=== PATIENT | male | born 1945 | race Caucasian/White ===

== ENCOUNTER 2024-01-23 07:46 | Day surgery (SDC) | payer OTHER ==
[2024-01-19 12:49] VITALS: BMI 29.2
[2024-01-23] MEDS ORDERED: PHENYLEPHRINE 2.5% OPTHALMIC DROP 2ML BOTTLE ONE (07:59)
[2024-01-23] MEDS ORDERED: TROPICAMIDE 1% OPHTH SOLN 15 ML BOTTLE ONE (07:59)
[2024-01-23] MEDS: OFLOXACIN 0.3% OPHTHALMIC SOLUTION 5 ML BOTTLE OD SCH (08:10)
[2024-01-23] MEDS: KETOROLAC TROMETHAMINE 0.5% EYE DROP 1 DROP DROPS OD SCH (08:10)
[2024-01-23] MEDS: CYCLOPENTOLATE HCL 1% OPHTH SOLN 2 ML BOTTLE OD SCH (08:10)
[2024-01-23] MEDS: TROPICAMIDE 1% OPHTH SOLN 15 ML BOTTLE OD SCH (08:10)
[2024-01-23] MEDS: PHENYLEPHRINE 2.5% OPHTH SOLN 15 ML BOTTLE OD SCH (08:10)
[2024-01-23] MEDS ORDERED: BETAXOLOL HCL 0.25% OPHTHALMIC 10 ML DROPSBTL ONE (08:22)
[2024-01-23] MEDS ORDERED: BACITRACIN/POLYMYXIN OPH OINT 3.5 GM TUBE ONE (08:22)
[2024-01-23] MEDS ORDERED: TETRACAINE 0.5% OPHTH SOLN 2 ML BOTTLE ONE (08:23)
[2024-01-23] MEDS ORDERED: BSS (NA/CA/MG/K) BALANCED SALT SOLUTION OPHTH SOLN 15 ML BOTTLE ONE (08:23)
[2024-01-23] MEDS ORDERED: EPI-SHUGARCAINE (EPINEPHRINE 0.025% & LIDOCAINE-PF 0.75%) 4ML ONE (08:23)
[2024-01-23] MEDS ORDERED: POVIDONE-IODINE 5% OPHTHALMIC PREP 30 ML SOLUTION ONE (08:23)
[2024-01-23] MEDS ORDERED: EPINEPHrine/PF 1 MG/1 ML (1:1,000) AMPULE ONE (08:24)
[2024-01-23] MEDS ORDERED: NEO/POLYMYX B SULF/DEXAMETH OPHTHALMIC 5ML BOTTLE ONE (08:24)
[2024-01-23] MEDS ORDERED: MIDAZOLAM HCL 2 MG/2 ML SINGLE DOSE VIAL ONE (09:15)
[2024-01-23] MEDS ORDERED: ACETYLCHOLINE 1:100 INTRA-OCUL 20 MG/2 ML KIT ONE (10:30)
[2024-01-23] MEDS ORDERED: METOPROLOL TARTRATE 5 MG/5 ML VIAL ONE (11:34)
[2024-01-23] MEDS ORDERED: ACETAMINOPHEN 325 MG TABLET (FP) PO PRN (11:57)
[2024-01-23 14:35] VITALS: TEMP 97.3
[2024-01-23 14:39] VITALS: BP 146/78; PULSE 60; RESP 16
== END 2024-01-23 13:00 | disposition home or self-care (01) ==
LOC: FASU 07:46
PROVIDERS: ATTEND Ophthalmology
PROC: 08RJ3JZ Replacement of Right Lens with Synthetic Substitute, Percutaneous Approach (ICD-10-PCS; principal; 2024-01-23 09:32)
DX: H25.11 Age-related nuclear cataract, right eye (principal)
CPT/HCPCS: 66982; V2632